=== PATIENT | male | born 1950 | race Caucasian/White ===

== ENCOUNTER 2019-07-19 07:19 | Inpatient (IN) | payer BC ==
[~2019-07-19] VITALS: Ht 172.7 cm; Wt 104.0 kg
[2019-07-19 08:12] LABS: BASOPHIL % 0.3 % (0-2); PLATELET COUNT 178 x10^3mcL (130-400); RED CELL DISTRIBUTION WIDTH 13.8 % (11.5-14.5)
[2019-07-19 08:27] LABS: CALCIUM 8.6 mg/dL (8.5-10.1); CARBON DIOXIDE 25.4 mmol/L (21-32); CHLORIDE SERUM 98 mmol/L (98-107); GFR1 > 60 mL/min; GLUCOSE SERUM 117 mg/dL (74-106); POTASSIUM SERUM 4.2 mmol/L (3.5-5.1); SODIUM SERUM 130 mmol/L (136-145)
[2019-07-19 08:29] LABS: ALBUMIN 3.5 g/dL (3.4-5.0); ALKALINE PHOSPHATASE 80 U/L (46-116); ALT/SGPT 250 U/L (16-63); AST/SGOT 200 U/L (15-37); BILIRUBIN TOTAL 1.2 mg/dL (0.20-1.00); TOTAL PROTEIN, SERUM 6.4 g/dL (6.4-8.2)
[2019-07-19 08:31] LABS: CHOLESTEROL 108 mg/dL (<200); HDL CHOLESTEROL 32 mg/dL (40-60)
[2019-07-19 10:05] LABS: UA SPECIFIC GRAVITY >=1.030 (1.005-1.035); microscopic required? YES; urine erythrocyte 2+ (NEGATIVE)
[2019-07-19] MEDS ORDERED: VENLAFAXINE HYD75 M1 PO (10:42)
[2019-07-19] MEDS ORDERED: AMBIEN5 MG PO (10:42)
[2019-07-19] MEDS ORDERED: ATORVASTATIN CA40 M1 PO (10:43)
[2019-07-19] MEDS ORDERED: CHILDREN'S100 MG/52 PO (10:43)
[2019-07-19] MEDS ORDERED: TOPROL XL25 MG PO (10:43)
[2019-07-19] MEDS ORDERED: XARELTO10 M1 PO (10:43)
[2019-07-19] MEDS ORDERED: XOPENEX1.25 MG/3 IH (10:44)
[2019-07-19 13:00] VITALS: BP 118/95
[2019-07-19 13:47] VITALS: BP 142/90
[2019-07-19 17:15] VITALS: BP 138/93
[2019-07-19 20:34] VITALS: BP 108/79
[2019-07-20 05:08] VITALS: BP 119/86
[2019-07-20 06:15] LABS: CALCIUM 8.5 mg/dL (8.5-10.1); CARBON DIOXIDE 28.2 mmol/L (21-32); CHLORIDE SERUM 99 mmol/L (98-107); GFR1 > 60 mL/min; GLUCOSE SERUM 133 mg/dL (74-106); POTASSIUM SERUM 4.6 mmol/L (3.5-5.1); SODIUM SERUM 133 mmol/L (136-145)
[2019-07-20 06:21] LABS: BASOPHIL % 0.2 % (0-2); PLATELET COUNT 195 x10^3mcL (130-400); RED CELL DISTRIBUTION WIDTH 13.7 % (11.5-14.5)
[2019-07-20 09:29] VITALS: BP 122/84
[2019-07-20 11:52] VITALS: BP 105/75
[2019-07-20 16:28] VITALS: BP 122/97
[2019-07-20 20:44] VITALS: BP 133/89
[2019-07-21 01:30] VITALS: BP 127/85
[2019-07-21 05:51] VITALS: BP 131/111
[2019-07-21 09:05] VITALS: BP 139/96
[2019-07-21 12:52] VITALS: BP 127/83
[2019-07-21 19:25] VITALS: BP 123/77
[2019-07-21 23:15] VITALS: BP 98/77
[2019-07-22] VITALS (13 sets, daily range): BP systolic 86–157; BP diastolic 50–95
[2019-07-22 05:11] LABS: CALCIUM 8.2 mg/dL (8.5-10.1); CARBON DIOXIDE 30.2 mmol/L (21-32); CREATININE SERUM 2.1 mg/dL (0.7-1.3); MAGNESIUM 2.9 mg/dL (1.8-2.4)
[2019-07-22 05:19] LABS: BASOPHIL % 0 % (0-2); PLATELET COUNT 172 x10^3mcL (130-400); RED CELL DISTRIBUTION WIDTH 14.2 % (11.5-14.5)
[2019-07-22 20:36] LABS: BILIRUBIN TOTAL 1.25 mg/dL (0.20-1.00); CALCIUM 7.4 mg/dL (8.5-10.1); CARBON DIOXIDE 24.2 mmol/L (21-32); CREATININE SERUM 1.9 mg/dL (0.7-1.3); MAGNESIUM 2.8 mg/dL (1.8-2.4); POTASSIUM SERUM 3.9 mmol/L (3.5-5.1)
[2019-07-22 20:37] LABS: ALBUMIN 2.9 g/dL (3.4-5.0); TOTAL PROTEIN, SERUM 5.3 g/dL (6.4-8.2)
[2019-07-23] VITALS (16 sets, daily range): BP systolic 87–151; BP diastolic 65–101
[2019-07-23 02:16] LABS: BASOPHIL % 0.8 % (0-2); PLATELET COUNT 147 x10^3mcL (130-400); RED CELL DISTRIBUTION WIDTH 13.8 % (11.5-14.5)
[2019-07-23 02:32] LABS: BILIRUBIN TOTAL 1.39 mg/dL (0.20-1.00); CALCIUM 7.4 mg/dL (8.5-10.1); CARBON DIOXIDE 22.2 mmol/L (21-32); CREATININE SERUM 1.8 mg/dL (0.7-1.3); POTASSIUM SERUM 3.3 mmol/L (3.5-5.1)
[2019-07-23 02:38] LABS: ALBUMIN 3.1 g/dL (3.4-5.0); TOTAL PROTEIN, SERUM 5.3 g/dL (6.4-8.2)
[2019-07-23 08:55] LABS: BILIRUBIN TOTAL 1.3 mg/dL (0.20-1.00); CALCIUM 7.6 mg/dL (8.5-10.1); CARBON DIOXIDE 23.6 mmol/L (21-32); CREATININE SERUM 1.8 mg/dL (0.7-1.3); MAGNESIUM 2.8 mg/dL (1.8-2.4); PHOSPHOROUS 4.7 mg/dL (2.5-4.9); POTASSIUM SERUM 3.3 mmol/L (3.5-5.1)
[2019-07-23 09:03] LABS: TOTAL PROTEIN, SERUM 5.6 g/dL (6.4-8.2)
[2019-07-23 14:53] LABS: BILIRUBIN TOTAL 1.3 mg/dL (0.20-1.00); CALCIUM 7.4 mg/dL (8.5-10.1); CREATININE SERUM 1.7 mg/dL (0.7-1.3); MAGNESIUM 2.7 mg/dL (1.8-2.4); PHOSPHOROUS 5.3 mg/dL (2.5-4.9); POTASSIUM SERUM 3.6 mmol/L (3.5-5.1)
[2019-07-23 14:56] LABS: ALBUMIN 2.8 g/dL (3.4-5.0); TOTAL PROTEIN, SERUM 5.6 g/dL (6.4-8.2)
[2019-07-23 20:36] LABS: BILIRUBIN TOTAL 1.4 mg/dL (0.20-1.00); CALCIUM 7.3 mg/dL (8.5-10.1); CARBON DIOXIDE 26.6 mmol/L (21-32); CREATININE SERUM 1.5 mg/dL (0.7-1.3); MAGNESIUM 2.5 mg/dL (1.8-2.4); PHOSPHOROUS 4.5 mg/dL (2.5-4.9); POTASSIUM SERUM 3.6 mmol/L (3.5-5.1)
[2019-07-23 20:37] LABS: ALBUMIN 2.6 g/dL (3.4-5.0); TOTAL PROTEIN, SERUM 5.2 g/dL (6.4-8.2)
[2019-07-24] VITALS (10 sets, daily range): BP systolic 81–121; BP diastolic 56–87; Ht 172.7 cm; Wt 104.0 kg
[2019-07-24 05:44] LABS: BASOPHIL % 0.1 % (0-2); PLATELET COUNT 197 x10^3mcL (130-400); RED CELL DISTRIBUTION WIDTH 14.9 % (11.5-14.5)
[2019-07-24 05:45] LABS: CALCIUM 7.4 mg/dL (8.5-10.1); CARBON DIOXIDE 26.7 mmol/L (21-32); CREATININE SERUM 1.7 mg/dL (0.7-1.3); MAGNESIUM 2.8 mg/dL (1.8-2.4); PHOSPHOROUS 5.6 mg/dL (2.5-4.9); POTASSIUM SERUM 4.1 mmol/L (3.5-5.1)
[2019-07-24 12:10] LABS: PLATELET COUNT 209 x10^3mcL (130-400)
[2019-07-24 12:12] LABS: BASOPHIL % 0 % (0-2); RED CELL DISTRIBUTION WIDTH 15.4 % (11.5-14.5)
[2019-07-24 14:28] LABS: BILIRUBIN TOTAL 1.1 mg/dL (0.20-1.00); CALCIUM 7.4 mg/dL (8.5-10.1); CARBON DIOXIDE 25.5 mmol/L (21-32); CREATININE SERUM 2.3 mg/dL (0.7-1.3); MAGNESIUM 2.8 mg/dL (1.8-2.4); PHOSPHOROUS 8.2 mg/dL (2.5-4.9); POTASSIUM SERUM 4.1 mmol/L (3.5-5.1)
[2019-07-24 14:31] LABS: ALBUMIN 2.7 g/dL (3.4-5.0); TOTAL PROTEIN, SERUM 5.5 g/dL (6.4-8.2)
== END 2019-07-24 22:00 | disposition expired | DRG 208 ==
LOC: ED 07:19 → DU 12:36 → IC 07-21 13:12
PROVIDERS: Emergency Medicine; Family Medicine; Internal Medicine Cardiovascular Disease; ADMIT Internal Medicine
PROC: 5A1945Z Respiratory Ventilation, 24-96 Consecutive Hours (ICD-10-PCS; principal; 2019-07-22)
PROC: 0BH17EZ Insertion of Endotracheal Airway into Trachea, Via Natural or Artificial Opening (ICD-10-PCS; 2019-07-22)
PROC: 04HY32Z Insertion of Monitoring Device into Lower Artery, Percutaneous Approach (ICD-10-PCS; 2019-07-22)
PROC: 5A12012 Performance of Cardiac Output, Single, Manual (ICD-10-PCS; 2019-07-22)
PROC: 5A12012 Performance of Cardiac Output, Single, Manual (ICD-10-PCS; 2019-07-24)
DX: J69.0 Pneumonitis due to inhalation of food and vomit (principal); J96.01 Acute respiratory failure with hypoxia; I50.23 Acute on chronic systolic (congestive) heart failure; G93.1 Anoxic brain damage, not elsewhere classified; F10.239 Alcohol dependence with withdrawal, unspecified; I48.91 Unspecified atrial fibrillation; I11.0 Hypertensive heart disease with heart failure; I46.9 Cardiac arrest, cause unspecified; R09.2 Respiratory arrest; I25.10 Atherosclerotic heart disease of native coronary artery without angina pectoris; J44.9 Chronic obstructive pulmonary disease, unspecified; G47.33 Obstructive sleep apnea (adult) (pediatric); E78.5 Hyperlipidemia, unspecified; F32.9 Major depressive disorder, single episode, unspecified; F17.290 Nicotine dependence, other tobacco product, uncomplicated; E66.01 Morbid (severe) obesity due to excess calories; Z66 Do not resuscitate; Z79.01 Long term (current) use of anticoagulants; Z91.19 Patient's noncompliance with other medical treatment and regimen
CPT/HCPCS: 31500; 36556; 36600; 82962; 83880; 87804; 97116-GP; A4628; C9113; G0378; J0171; J0330; J0456; J0461; J0696; J1644; J1940; J2060; J2250; J2270; J2370; J2543; J2920; J2930; J3010; J3475; J3480; J3490; J7030; J7040; J7050; J7060; J7613; J7626; J7644; Q0092